=== PATIENT | male | born 1950 | race Caucasian/White ===

== ENCOUNTER 2017-11-23 15:02 | Outpatient (CLI) | payer MEDICARE ==
[~2017-11-23] VITALS: Ht 177.8 cm; Wt 95.7 kg
[2017-11-23 14:00] VITALS: BP 112/53
[2017-11-23] MEDS ORDERED: ASPIR 8181 MG ORAL (15:38)
[2017-11-23] MEDS ORDERED: UNOBMED (15:38)
--- NOTE | 2017-11-23 15:40 | GI Initial Consult Note ---
History of Present Illness General Date patient seen: Nov 23, 2017 Time patient seen: 15:36 Referring physician: CARLY Reason for Consultation: COLONOSCOPY SCREENING Present Illness HPI 67 year old male patient referred by Dr. Baltazar for routine colonoscopy screening. The patient's last colonoscopy was over 10 years ago, he cannot recall any results. He stated he had diarrhea 2 days ago, but it has resolved since then. He denies any abdominal pain, N/V or constipation. No signs of abuse or neglect. Patient is not fall risk, ambulatory. Denies any unintentional weight loss or changes in dietary habits. Pt is on a cholesterol medication, but cannot recall the name. 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 Family History Narrative Mother had diabetes. Social History: Reports: alcohol use - social, other - daily coffee Review of Systems All Other Systems: negative except mentioned in HPI Physical Exam T 97.8 BP 112/53 P 71 94 RA HT 5'10 WT 211.8 lbs Sp02 EP Interpretation: reviewed, normal General Appearance: well appearing, no apparent distress, alert Head: normocephalic EENT: PERRL/EOMI, normal ENT inspection Neck: supple Respiratory: normal breath sounds, no respiratory distress Cardiovascular: normal rate Gastrointestinal: normal inspection, non tender, soft, normal bowel sounds, non -distended Rectal: deferred Genitourinary: deferred Musculoskeletal: normal inspection, back normal Neurologic: normal inspection, alert, oriented x3, responsive Psychiatric: normal inspection, judgement/insight normal, memory normal Skin: normal inspection, normal color, no rash, warm/dry, palpation normal, well hydrated Lymphatic: normal inspection, no adenopathy GI: Plan Problems: (1) HLD (hyperlipidemia) (2) Colonoscopy planned Plan Colonoscopy scheduled for 12/02/17. - CLD & (Nulytely/Suprep/Movi-Prep) prep instructions given and acknowledged by patient. - NPO @ HI day prior procedure explained. Seen with Dr. Fischer. Thank you for this patient referral. The patient was seen and examined at bedside and all new and available data was reviewed in the patients chart. I agree with the above findings, impression and plan. (Patient seen earlier today. Signature stamp does not reflect patient encounter time.). - MD Kenisha [facility] 5TH GRADE TEACHER Nov 23, 2017 15:40
== END 2017-11-23 15:33 | disposition home or self-care (01) ==
LOC: PAN 15:02
DX: E78.5 Hyperlipidemia, unspecified (principal); Z79.82 Long term (current) use of aspirin
CPT/HCPCS: 99201

== ENCOUNTER 2017-12-09 08:25 | Day surgery (SDC) | payer MEDICARE ==
[2017-12-09] VITALS (10 sets, daily range): BP systolic 111–139; BP diastolic 68–81
[~2017-12-09] VITALS: Ht 177.8 cm; Wt 90.7 kg
[~2017-12-09 08:25] MED LIST: ASPIR 8181 MG ORAL; UNOBMED PO
[2017-12-09] MEDS ORDERED: fentaNYL 100 mcg/2 mL IV ONE (09:00)
[2017-12-09] MEDS ORDERED: Midazolam 2mg/2ml Inj ONE (09:00)
[2017-12-09] MEDS ORDERED: LR 1000ml ONE ×2 (09:00→10:00)
[2017-12-09] MEDS ORDERED: Propofol 200mg/20ml IV ONE ×2 (09:00→10:00)
--- NOTE | 2017-12-09 09:33 | Anethesia Preoperative Eval ---
Anesthesia Pre-op PMH/ROS General Date of Evaluation: Dec 09, 2017 Time of Evaluation: 09:47 Anesthesiologist: Dayana ASA Score: ASA 2 Mallampati Score Class I : Soft palate, uvula, fauces, pillars visible Class II: Soft palate, uvula, fauces visible Class III: Soft palate, base of uvula visible Class IV: Only hard plate visible Mallampati Classification: Class III Surgeon: Amado Diagnosis: Colon screening Surgical Procedure: Colonoscopy Anesthesia History: none Social History: smoking - 20 pack years, stopped 20 years ago Family History: no anesthesia problems Allergies: Coded Allergies: No Known Allergies (Unverified , 11/23/17) Medications: see eMAR Past Medical History Cardiovascular: Reports: other - Hyperlipidemia Pulmonary: Denies: asthma, COPD, OUSMANE, other Gastrointestinal/Genitourinary: Denies: GERD, CRI, ESRD, other Neurologic/Psychiatric: Denies: dementia, CVA, depression/anxiety, TIA, other Endocrine: Denies: DM, hypothyroidism, steroids, other HEENT: Denies: cataract (L), cataract (R), glaucoma, CAMPO (L), CAMPO (R), other Hematology/Immune: Denies: anemia, DVT, bleeding disorder, other Musculoskeletal/Integumentary: Denies: OA, RA, DJD, DDD, edema, other Other: obesity Anesthesia Pre-op Phys. Exam Physician Exam Last Vital Signs Date Time Temp Pulse Resp B/P (MAP) Pulse Ox O2 Delivery O2 Flow Rate FiO2 12/09/17 09:05 97.3 66 18 125/68 (87) 96 97.3 12/09/17 09:00 Room Air Constitutional: NAD Neurologic: CN 2-12 intact Cardiovascular: RRR Respiratory: CTA Gastrointestinal: S/NT/ND Airway Exam Mallampati Score: Class III MO: full ROM: full Dentures: no upper, no lower Anesthesia Pre-op A/P Studies Pre-op Studies: EKG - 1st degree AV block HR 63 Risk Assessment & Plan Assessment: Healthy 67 yo male hx significant for hyperlipidemia; routine colon screening Plan: MAC Status Change Before Surgery: Tere Morales CRNA Dec 09, 2017 09:33
--- NOTE | 2017-12-09 09:47 | Immediate Post-Op Evaluation ---
Immediate Post-Op Evalulation Immediate Post-Op Evalulation Procedure: EGD and colonoscopy Date of Evaluation: Dec 09, 2017 Time of Evaluation: 09:39 IV Fluids: LR 700 ml Blood Pressure Systolic: 93 Blood Pressure Diastolic: 64 Pulse Rate: 91 Respiratory Rate: 20 O2 Sat by Pulse Oximetry: 100 Temperature (Fahrenheit): 97.8 Pain Score (1-10): 0 Nausea: No Vomiting: No Complications None Patient Status: awake, reacts Hydration Status: adequate Tere Hubbard CRNA Dec 09, 2017 09:47
--- NOTE | 2017-12-09 09:53 | Short Stay Surgery H&P ---
History of Present Illness History of Present Illness Chief Complaint see recent office note HPI Que Schuster is a 67 year old male who was admitted on for Colon Screening Patient History Allergies: Coded Allergies: No Known Allergies (Unverified , 11/23/17) Medication History Scheduled Aspirin* (Aspir 81*), 81 MG ORAL DAILY, (Reported) Unable to Obtain Medications (Unable To Obtain Meds), 1 TAB PO DAILY, (Reported) Physical Exam Vital Signs Last Vital Signs Date Time Temp Pulse Resp B/P (MAP) Pulse Ox O2 Delivery O2 Flow Rate FiO2 12/09/17 09:47 208.0 91 20 100 12/09/17 09:05 125/68 (87) 12/09/17 09:00 Room Air Plan Attestation Are the patient's medical conditions optimized for surgery? Delvis Fischer MD Dec 09, 2017 09:53
--- NOTE | 2017-12-09 09:53 | Pre-Procedure Note/Attestation ---
Pre-Procedure Note/Attestation Complete Prior to Procedure Planned Procedure: not applicable Procedure Narrative: colonoscopy Indications for Procedure Pre-Operative Diagnosis: screening Attestation I attest that I discussed the nature of the procedure; its benefits; risks and complications; and alternatives (and the risks and benefits of such alternatives ), prior to the procedure, with the patient (or the patient's legal training representative). I attest that, if there was a reasonable possibility of needing a blood transfusion, the patient (or the patient's legal training representative) was given the [facility] standardized written summary, pursuant to the [place] Blood Safety Act ([place] Health and Safety Code # 1645, as amended). I attest that I re-evaluated the patient just prior to the surgery and that there has been no change in the patient's H&P, except as documented below: Delvis Fischer MD Dec 09, 2017 09:53
[2017-12-09] MEDS ORDERED: Lidocaine 1% MPF 10mg/ml 5ml ONE (10:00)
--- NOTE | 2017-12-09 10:16 | Endoscopy Procedure Note ---
Endoscopy Procedure Note General Indication for Procedure: screening Procedures Performed: colonoscopy Operative Findings/Diagnosis: one polyp, diverticulosis Specimen: yes Pt Tolerated Procedure Well: Yes Estimated Blood Loss: none Anesthesia Anesthesiologist: randall Anesthesia: MAC Inserted Devices Implant(s) used?: No Quality Quality of Bowel Preparation: Poor Did scope reach the cecum?: Yes Was there any complications?: No GI Core Measures 50 yrs or older w/o bx or poly: No 10yrs. F/U not recommended: Yes If not recommended, why?: Above average risk 10 yrs. F/U needed: Yes 18 years or older w/prev. colo: No Delvis Fischer MD Dec 09, 2017 10:16
--- NOTE | 2017-12-09 10:26 | Immediate Post-Op Evaluation ---
Immediate Post-Op Evalulation Immediate Post-Op Evalulation Procedure: diagnostic colonoscopy Date of Evaluation: Dec 09, 2017 Time of Evaluation: 10:18 IV Fluids: 500 0.9% NS Blood Pressure Systolic: 113 Blood Pressure Diastolic: 81 Pulse Rate: 66 Respiratory Rate: 16 O2 Sat by Pulse Oximetry: 100 Temperature (Fahrenheit): 97.8 Pain Score (1-10): 0 Nausea: No Vomiting: No Complications none Patient Status: awake, reacts Tere Hubbard CRNA Dec 09, 2017 10:26
--- NOTE | 2017-12-09 12:19 | 48 Hour Post Anesthesia Eval ---
Post Anesthesia Evaluation Procedure: diagnostic colonoscopy Date of Evaluation: Dec 09, 2017 Time of Evaluation: 12:17 Blood Pressure Systolic: 129 0: 72 Pulse Rate: 62 Respiratory Rate: 18 Temperature (Fahrenheit): 97.0 O2 Sat by Pulse Oximetry: 100 Airway: patent Nausea: No Vomiting: No Pain Intensity: 0 Hydration Status: adequate Mental Status/LOC: patient returned to baseline Follow-up care needed: ready to discharge Tere Hubbard CRNA Dec 09, 2017 12:19
--- NOTE | 2017-12-09 17:16 | Procedure Note ---
DATE OF PROCEDURE: 12/09/2017 SURGEON: Delvis Fischer M.D. PROCEDURE: Colonoscopy with biopsy. ANESTHESIA: Per Stevie ALMEIDA. INDICATION: Screening. The procedure, risks, benefits, and possible consequences, including hemorrhage, aspiration, perforation and infection, and alternative treatments, were explained to the patient/legal guardian by Dr. Delvis Fischer and the patient/legal guardian understood and accepted these risks. DESCRIPTION OF PROCEDURE: After informed consent was obtained and the patient was adequately sedated, first rectal exam was performed which was positive for external and internal hemorrhoids. Then the scope was advanced from the rectum into the cecum. Quality of prep was poor. There was some evidence of inflammation of the cecum, but we could not examine properly given that it was full of stool. We washed few times, tried to suction, and get to it, but the scope was getting clogging up easily, so we decided to hold off at this time. The patient had one diminutive polyp in the transverse colon, removed with the cold biopsy forceps technique. The patient had scattered diverticulosis in the left colon. Retroflexion of rectum showed evidence of internal hemorrhoids. SUMMARY OF FINDINGS: 1. Poor prep. 2. One polyp removed, see above for details. 3. Diverticulosis. 4. Internal and external hemorrhoids. RECOMMENDATIONS: 1. Follow up biopsy results and treat accordingly. 2. Given there is suspicious something in the cecum and this poor prep, we cannot examine, I recommend repeat colonoscopy in 6 months. Delvis Fischer M.D. DR: ARABELLA JOB#: [id number] CC:
--- NOTE | 2017-12-09 17:48 | Cardiology Report ---
APPROVED REPORT EKG Measurement Heart [id number] OR [id number] Sinus rhythm with 1st degree AV block Otherwise normal ECG
== END 2017-12-09 11:25 | disposition home or self-care (01) ==
LOC: GAS 08:25
DX: Z12.11 Encounter for screening for malignant neoplasm of colon (principal); K63.5 Polyp of colon; K64.8 Other hemorrhoids; K64.4 Residual hemorrhoidal skin tags; K57.30 Diverticulosis of large intestine without perforation or abscess without bleeding; E78.5 Hyperlipidemia, unspecified; E66.9 Obesity, unspecified; Z87.891 Personal history of nicotine dependence; Z79.82 Long term (current) use of aspirin
CPT/HCPCS: 93005; 94003; 94150; J2250; J2405

== ENCOUNTER 2018-02-02 09:19 | Outpatient (CLI) | payer MEDICARE ==
--- NOTE | 2018-02-02 09:54 | GI Progress Note ---
Assessment/Plan Problems: (1) Diverticulosis ICD Codes: K57.90 - Diverticulosis of intestine, part unspecified, without perforation or abscess without bleeding SNOMED: 732795836 (2) Hemorrhoid ICD Codes: K64.9 - Unspecified hemorrhoids SNOMED: 00893282 (3) Polyp, colonic ICD Codes: K63.5 - Polyp of colon SNOMED: 24692259 Status: stable Status Narrative Seen with Dr. Fischer. Assessment/Plan SUMMARY OF FINDINGS: 1. Poor prep. 2. One polyp removed, see above for details. 3. Diverticulosis. 4. Internal and external hemorrhoids. RECOMMENDATIONS: 1. Follow up biopsy results and treat accordingly. >> unremarkable 2. Given there is something suspicious in the cecum and this poor prep, we cannot examine, I recommend repeat colonoscopy in 6 months, or May 2018. RTC prn The patient was seen and examined at bedside and all new and available data was reviewed in the patients chart. I agree with the above findings, impression and plan. (Patient seen earlier today. Signature stamp does not reflect patient encounter time.). - Delvis Fischer MD Subjective Gastrointestinal/Abdominal: Reports: no symptoms Objective T 97.8 BP 118/71 P76 96 RA General Appearance: WD/WN, no apparent distress, alert Cardiovascular: normal rate Respiratory/Chest: normal breath sounds, no respiratory distress Abdominal Exam: normal bowel sounds, non tender, soft Extremities: normal range of motion, non-tender Maury De NP Feb 02, 2018 09:54
[2018-02-02 10:04] VITALS: BP 118/71
[2018-02-02] MEDS ORDERED: CHOLESTEROL MED (13:58)
== END 2018-02-02 09:49 | disposition home or self-care (01) ==
LOC: PAN 09:19
DX: K57.90 Diverticulosis of intestine, part unspecified, without perforation or abscess without bleeding (principal); K64.9 Unspecified hemorrhoids; K63.5 Polyp of colon
CPT/HCPCS: 99212

== ENCOUNTER 2019-09-20 09:43 | Outpatient (CLI) | payer MEDICARE ==
[2019-09-20 09:00] VITALS: BP 112/48
[~2019-09-20 09:43] MED LIST changes: +CHOLESTEROL MED
--- NOTE | 2019-09-26 14:46 | General Progress Note ---
Assessment/Plan Assessment/Plan: Assessment/Plan Problems: (1) Diverticulosis ICD Codes: K57.90 - Diverticulosis of intestine, part unspecified, without perforation or abscess without bleeding SNOMED: 364021879 (2) Hemorrhoid ICD Codes: K64.9 - Unspecified hemorrhoids SNOMED: 45699640 (3) Polyp, colonic ICD Codes: K63.5 - Polyp of colon SNOMED: 63048441 Status: stable Status Narrative Seen with Dr. Fischer. Assessment/Plan SUMMARY OF FINDINGS: 1. Poor prep. 2. One polyp removed, see above for details. 3. Diverticulosis. 4. Internal and external hemorrhoids. RECOMMENDATIONS: 1. Follow up biopsy results and treat accordingly. >> unremarkable 2. Given there is something suspicious in the cecum and this poor prep, we cannot examine, I recommend repeat colonoscopy patient was given the prep again today and he will call to schedule colonoscopy Subjective ROS Limited/Unobtainable: Yes Allergies: Coded Allergies: No Known Allergies (Unverified , 11/23/17) Objective General Appearance: alert EENT: normal ENT inspection Neck: supple Cardiovascular: normal rate Respiratory/Chest: lungs clear Abdomen: normal bowel sounds, non tender, soft Extremities: non-tender Delvis Fischer MD Sep 26, 2019 14:46
== END 2019-09-20 11:43 | disposition home or self-care (01) ==
LOC: PAN 09:43
DX: K57.90 Diverticulosis of intestine, part unspecified, without perforation or abscess without bleeding (principal); K64.9 Unspecified hemorrhoids; K63.5 Polyp of colon; K64.8 Other hemorrhoids
CPT/HCPCS: 99212